=== PATIENT | male | born 1985 | race Caucasian/White ===

== ENCOUNTER → 2021-02-14 17:40 | Outpatient (BNVA) | payer OTHER, SELFPAY | PROVIDERS: Visit Provider Surgery | DX: Z20.822 Contact with and (suspected) exposure to COVID-19 (principal) | CPT/HCPCS: 87635 ==

== ENCOUNTER 2021-02-20 07:21 | Day surgery (SDC) | payer OTHER, SELFPAY ==
[2021-02-19 14:01] VITALS: BMI 23.1
--- NOTE | 2021-02-20 07:39 | ANES.PREANE2 ---
Pre-Anesthetic Assessment Pre-Anesthetic Assessment: Height/Weight: Height 1.88 m Weight 81.647 kg Preop Diagnosis: hemorrhoids Proposed Procedure: Operation Date: 02/20/21 08:20 Proposed Procedures p Hemorroidectomy 95706 K64.9(Not Applicable) - Macho Cortés MD Was Beta Jose Maria taken within 24 hours: N/A Was Clonidine taken within 24 hours: N/A Social: Social History: Alcohol and Tobacco Exam: Pre-Anes Outpt Exam: alert, oriented x 3, clear to auscultation bilaterally and regular rate & rhythm Airway: Submandibular: WNL Cervical ROM: WNL MP: 2 Pulmonary: Pulmonary: None reported CV/HEM: CV/HEM: None reported : : None reported Hepatic: Hepatic: None reported GI: GI: None reported Metabolic: Metabolic: None reported Musc/skel: Musc/skel: None reported Neuropsych: Neuropsych: Anxiety and Depression Anesthetic Plan: ASA status: 2 Anesthesia: General PFSH Anesthesia PFSH: Medical History Psychiatric care Social History Smoking and tobacco status: current every day smoker cigarettes Packs smoked per day: 1.5 Years cigarettes smoked: 22 Quit status (tobacco): has tried quititng Number of times tried to quit tobacco: 4 Second hand smoke exposure: Yes Data Anesthesia Cardiac Studies: No Data to Display
[2021-02-20 07:40] VITALS: BP 116/79; PULSE 79; RESP 18; TEMP 36.2; O2SAT 96
[2021-02-20] MEDS: sodium chloride 0.9% 1,000 ML 30 ML IV (07:42)
--- NOTE | 2021-02-20 07:42 | W.PM.OPSFHP ---
Same Day Surgery H&P Indication for Procedure/HPI DATE OF PROCEDURE: February 20, 2021 CHIEF COMPLAINT/INDICATIONFOR SURGICAL PROCEDURE: hemorroidectomy PREOP DIAGNOSIS: hemorrhoids PLANNED PROCEDRUE: Operation Date: 02/20/21 08:20 Proposed Procedures p Hemorroidectomy 91965 K64.9(Not Applicable) - Macho Cortés MD Medications/Allergies* Home Medications Medication Instructions Recorded Confirmed Type ascorbate calcium (vitamin C) 500 500 mg PO DAILY 11/15/20 02/19/21 History mg tablet aspirin-caffeine 500 mg-32.5 mg 1 tab PO DAILY tab 11/15/20 02/19/21 History tablet cholecalciferol (vitamin D3) 250 250 mcg PO DAILY 11/15/20 02/19/21 History mcg (10,000 unit) capsule pantoprazole 20 mg PO DAILY 02/19/21 02/19/21 History Allergies/Adverse Reactions Allergy/AdvReac Type Severity Reaction Status Date / Time Bee stings Allergy Intermediate Swelling Uncoded 02/19/21 13:57 Pertinent History/Comorbid Conditions* Medical History (Updated 11/16/20 @ 16:39 by Sinai Desai) Psychiatric care Social History Smoking and tobacco status: current every day smoker cigarettes Packs smoked per day: 1.5 Years cigarettes smoked: 22 Quit status (tobacco): has tried quititng Number of times tried to quit tobacco: 4 Second hand smoke exposure: Yes Pertinent Exam Findings alert, oriented x 3 and regular rate & rhythm Recommendations Surgery/Procedure today Coding Level of Care Code 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
[2021-02-20 08:54] VITALS: BP 137/79; PULSE 93; RESP 18; TEMP 36.2; O2SAT 98
--- NOTE | 2021-02-20 08:54 | PM.OP ---
Operative Report Date of procedure: February 20, 2021 Pre-op Diagnosis: Grade 3 hemorrhoids Post-op diagnosis: same Procedure Done: Hemorrhoidectomy x3 Pathology: Hemorrhoids x3 Surgeon: Macho Cortés Anesthesia: General Condition: stable Disposition: PACU Procedure: The patient was taken to the operating room and intubated under general anesthesia after IV antibiotic had been administered and placed in a prone jackknife position. The buttocks were taped apart. The perineum was prepped and draped in a sterile manner. A perianal block was performed using 10 cc of Exparel mixed with 10 cc of 0.5% Marcaine mixed with 10 cc of saline. Anoscope was introduced to examine the rectum and anal canal and 3 hemorrhoid pedicles were identified. The pedicle on the right side was grasped with Allis clamps and a skin incision was made from the perianal skin to the anal verge and the plane identified superficial to the internal sphincter muscle and the external and internal hemorrhoids were excised with an energy device. The pedicle on the left side was grasped with Allis clamps and a skin incision was made from the perianal skin to the anal verge and the plane identified superficial to the internal sphincter muscle and the external and internal hemorrhoids were excised with an energy device. The pedicle on the anterior aspect was grasped with Allis clamps and a skin incision was made from the perianal skin to the anal verge and the plane identified superficial to the internal sphincter muscle and the external and internal hemorrhoids were excised with an energy device. Hemostasis ensured and a Adaptic gauze soaked in Vaseline and placed within the anal canal. Dressings were applied and the patient was extubated and transferred to recovery room in stable condition.
[2021-02-20 09:00] VITALS: BP 113/77; PULSE 87; RESP 16; O2SAT 100
[2021-02-20 09:05] VITALS: BP 125/83; PULSE 72; RESP 18; TEMP 36.4; O2SAT 99
[2021-02-20 09:18] VITALS: BP 119/79; PULSE 65; RESP 18; TEMP 36.1; O2SAT 100
[2021-02-20 09:25] VITALS: RESP 18; O2SAT 100
[2021-02-20] MEDS: oxyCODONE-APAP 5-325 mg Tablet 1 TAB PO (09:25)
--- NOTE | 2021-02-20 14:19 | ANE.PACU2 ---
Inpatient post-anesthesia follow up: Airway intact: Yes Vital signs: Temperature 97.0 F Pulse Rate 65 Respiratory Rate 18 Blood Pressure 119/79 Pulse Oximetry 100 Oxygen Delivery Me thod Room Air Oxygen Flow Rate Fraction of Inspir ed Oxygen Hydration adequate: Yes Nausea and vomiting: No Pain level: 2 Mental status: Baseline
== END 2021-02-20 10:07 | disposition home or self-care (01) ==
PROVIDERS: PCP Family Medicine; Visit Provider Surgery
PROC: (CPT 46260; principal; 2021-02-20 08:20)
DX: K64.9 Unspecified hemorrhoids (principal); K64.8 Other hemorrhoids; F17.210 Nicotine dependence, cigarettes, uncomplicated; Z79.82 Long term (current) use of aspirin; Z91.030 Bee allergy status
CPT/HCPCS: 46260; 88304; C9290; J0330; J0690; J1100; J2250; J2370; J2405; J2704; J3010; J3490; J7030

== ENCOUNTER 2021-03-21 13:47 | Emergency (ER) | payer OTHER, SELFPAY ==
[2021-03-21 14:10] VITALS: BP 145/84; PULSE 78; RESP 16; TEMP 36.8; O2SAT 99; BMI 23.7
[2021-03-21 14:22] VITALS: BP 145/84; PULSE 78; RESP 16; O2SAT 97
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
[2021-03-21] MEDS: ibuprofen 800 mg tablet PO (14:56)
[2021-03-21 15:38] VITALS: BP 123/83; PULSE 87; RESP 18; O2SAT 97
== END 2021-03-21 15:46 ==
PROVIDERS: Emergency Provider Nurse Practitioner Family; PCP Family Medicine
DX: Z04.1 Encounter for examination and observation following transport accident (principal); Z77.22 Contact with and (suspected) exposure to environmental tobacco smoke (acute) (chronic); V89.2XXA Person injured in unspecified motor-vehicle accident, traffic, initial encounter
CPT/HCPCS: 73030; 99283

== ENCOUNTER 2022-02-04 22:26 | Emergency (ER) | payer BC, SELFPAY ==
[2022-02-04 22:32] VITALS: BP 132/91; PULSE 104; RESP 16; TEMP 36.5; O2SAT 96; BMI 23.7
--- NOTE | 2022-02-04 23:06 | ED.C_ITS ---
HPI - Psych General: Chief Complaint: Psychiatric Symptoms Stated Complaint: SH/ETOH Time Seen by Provider: 02/04/22 22:35 Source: patient and police Mode of arrival: other (police) Limitations: no limitations History of Present Illness: 36-year-old male is here with police does have a history of alcoholism states he does drink heavily tonight taking multiple shots of fireball drinking wine and beer. Does have a history of PTSD from [place] where he states he is having some flashbacks tonight he has had thoughts of depression states that he has had thoughts that life just was not worth living anymore. He denies any active suicidal or homicidal thoughts denies any active plans. He states he decided to call the police tonight because he was scared. Associated symptoms: Reports depression Review of Systems Const: Denies: fever(s), chills, body aches or change in appetite Eyes: Denies: blurry vision or eye discomfort ENMT: Denies: throat pain or dental pain Card: Denies: chest pain Resp: Denies: dyspnea GI: Denies: abdominal pain, nausea, vomiting or diarrhea : Denies: dysuria Musc: Denies: neck pain or back pain Skin/Breast: Denies: rash Neuro: Denies: headache(s) Psych: Reports: depression Kirill/Lymph: Denies: easy bruising All/Imm: Denies: urticaria PFS ED PFSH: Medical History Psychiatric care Surgical History S/P hemorrhoidectomy (02/20/21) Social History Smoking and tobacco status: current every day smoker cigarettes Packs smoked per day: 1.5 Years cigarettes smoked: 22 Quit status (tobacco): has tried quititng Number of times tried to quit tobacco: 4 Second hand smoke exposure: Yes Alcohol intake: current Alcohol intake frequency: holidays/special occasions only Alcohol type: beer Physical Exam Const: COMMON NORMALS: no acute distress and patient oriented x3 GENERAL APPEARANCE: odor of alcohol detected HENMT: COMMON NORMALS: normocephalic and atraumatic HEAD & SCALP: normocephalic and atraumatic Eye: COMMON NORMALS: Equal, round and reactive pupils present and EOMs intact bilaterally PUPIL: Yes Equal, round and reactive pupils present Neck/C-Spine: COMMON NORMALS: full ROM and supple Chest: COMMONS NORMALS: normal inspection of the chest and normal palpation of entire chest wall Resp: COMMON NORMALS: normal respiratory effort, No retractions, No use of accessory muscles and clear to auscultation bilaterally AUSCULTATION: clear to auscultation bilaterally Cardio: COMMON NORMALS: regular rate, regular rhythm and No murmurs present (Cardio) RATE: regular rate RHYTHM: regular rhythm GI: COMMON NORMALS: Normal to inspection, nondistended, normoactive bowel sounds present, Soft to palpation, non-tender and no masses PALPATION: Yes Soft to palpation Extremity: COMMON NORMALS: normal to inspection and full ROM Neuro: COMMON NORMALS: patient oriented x3, moves all extremities and no focal motor deficits Psych: COMMON NORMALS: mental status grossly normal, Normal thought process p resent and cooperative MOOD & AFFECT: Yes depressed mood THOUGHT PROCESS: Normal thought process present Skin: COMMON NORMALS: no rashes or lesions noted and no wounds GENERAL SKIN EXAM: no rashes or lesions noted Course 2 Vital Signs: Vital signs: Vital Signs Temperature 97.7 F 02/04/22 22:32 Pulse Rate 104 H 02/04/22 22:32 Respiratory Rate 15 02/04/22 23:35 Blood Pressure 132/91 02/04/22 22:32 Pulse Oximetry 96 02/04/22 22:32 Oxygen Delivery Me thod 02/04/22 23:35 MDM - Psych Medical Decision Making Patient presents here with depression he is also intoxicated patient is now sober he is not suicidal or homicidal he does have depression I had patient evaluated by Dr. Granado of psychiatry who recommends outpatient follow-up he does not meet inpatient criteria patient is stable for discharge he is followed [facility] he has any worsening symptoms he is return he understands agrees to plan. Lab Data 02/04/22 22:58 02/04/22 22:58 Laboratory Results WBC 8.2 10^3/uL (4.0-10.0) 02/04/22 22:58 RBC 4.36 10^6/uL (4.1-5.3) 02/04/22 22:58 Hgb 14.4 g/dL (11.7-16.6) 02/04/22 22:58 Hct 42.9 % (42.0-52.0) 02/04/22 22: MCV 98.4 fl (80-94) H 02/04/22 22:58 MCH 33.0 pg (28.0-34.0) 02/04/22 22: MCHC 33.6 g/dL (30.0-36.0) 02/04/22 22: RDW 11.9 % (12.1-15.1) L 02/04/22 22:58 Plt Count 322 10^3/cmm (130-400) 02/04/22 22:58 MPV 10.3 fL (7.4-10.4) 02/04/22 22: Neut % (Auto) 52.5 % 02/04/22 22: Lymph % (Auto) 37.9 % 02/04/22 22:58 Catron % (Auto) 6.0 % 02/04/22: Eos % (Auto) 2.9 % 02/04/22: Baso % (Auto) 0.5 % 02/04/22:58 Neut # (Auto) 4.29 10^3/uL (1.8-7.7) 02/04/22 22: Lymph # (Auto) 3.1 10^3/uL (0.8-4.8) 02/04/22 22:58 Catron # (Auto) 0.5 10^3/uL (0.2-0.9) 02/04/22 22: Eos # (Auto) 0.2 10^3/uL (0.0-0.8) 02/04/22 22:58 Baso # (Auto) 0.0 10^3/uL (0.0-0.1) 02/04/22: Nucleated RBC % (auto) 0 % 02/04/22: Nucleated RBCs # 0.0 /100WBC 02/04/22 22:58 Sodium 141 mmol/L (136-145) 02/04/22 22:58 Potassium 3.7 mmol/L (3.5-5.1) 02/04/22 22:58 Chloride 103 mmol/L (98-107) 02/04/22 22:58 Carbon Dioxide 25 mmol/L (22-29) 02/04/22 22:58 Anion Gap 16.7 (5-19) 02/04/22 22:58 BUN 5 mg/dL (6-20) L 02/04/22 22:58 Creatinine 0.7 mg/dL (0.7-1.2) 02/04/22 22:58 GFR Calculation 126.2 mL/min (90-130) 02/04/22 22:58 Glucose 98 mg/dL (65-115) 02/04/22 22:58 Calculated Osmolality 289 mOsm/kg (285-295) 02/04/22 22:58 Calcium 9.4 mg/dL (8.5-10.5) 02/04/22 22:58 Total Bilirubin 0.2 mg/dL (0.15-1.2) 02/04/22 22:58 AST 25 U/L (0-40) 02/04/22 22:58 ALT 19 U/L (0-41) 02/04/22 22:58 Alkaline Phosphatase 89 U/L (40-130) 02/04/22 22:58 Total Protein 7.7 g/dL (6.6-8.7) 02/04/22 22:58 Albumin 4.2 g/dL (3.5-5.2) 02/04/22 22:58 Globulin 3.5 g/dL (1.3-4.6) 02/04/22 22:58 Salicylates < 0.3 mg/dL (3-10) L 02/04/22 22:58 Urine Opiates Screen Negative ng/mL (Negative) 02/04/22 22:55 Acetaminophen < 5.0 ug/mL (10-30) L 02/04/22 22:58 Ur Barbiturates Screen Negative ng/mL (Negative) 02/04/22 22:55 Ur Phencyclidine Scrn Negative ng/mL (Negative) 02/04/22 22:55 Ur Amphetamines Screen Negative ng/mL (Negative) 02/04/22 22:55 U Benzodiazepines Scrn Negative ng/mL (Negative) 02/04/22 22:55 Urine Cocaine Screen Negative ng/mL (Negative) 02/04/22 22:55 U Marijuana (THC) Screen Negative ng/mL (Negative) 02/04/22 22:55 Ethyl Alcohol 167 mg/dL (0-10) H 02/04/22 22:58 Discharge Plan Discharge Patient Disposition: Home Clinical Impression: Depression, Alcohol abuse Condition: Stable Prescriptions: No Action ascorbate calcium (vitamin C) 500 mg tablet 500 mg PO DAILY cholecalciferol (vitamin D3) 250 mcg (10,000 unit) capsule 250 mcg PO DAILY Maya Back and Body 500-32.5 mg tablet 1 tab PO DAILY mirtazapine 15 mg tablet 15 mg PO .HS Qty: 30 2RF duloxetine 60 mg capsule,delayed release(DR/EC) 60 mg PO DAILY Qty: 30 2RF hydroxyzine HCl 50 mg tablet 50 mg PO QID PRN (Reason: anxiety) Qty: 120 2RF pantoprazole 20 mg Tablet,Delayed Release (Dr/Ec) 20 mg PO DAILY Discharge Orders: Discharge ED (Routine); Ordered 02/05/22 Ordered By: Rosy Hassan Referrals: [facility], [Staff Physician] - 1-3 days Gregorio Colón MD [Primary Care Provider] - Discharge Diet: Advance as tolerated Discharge Activity: Resume usual activity Patient Instructions: Depression (ED) Coding Level of Care Code ED Release Of Information Clerk for Chg Fwd Exam Comprehensive
[2022-02-04 23:15] LABS: Basophils % 0.5 %; Eosinophils # 0.2 10^3/uL (0.0-0.8); Eosinophils % 2.9 %; Hematocrit 42.9 % (42.0-52.0); Hemoglobin 14.4 g/dL (11.7-16.6); Lymphocytes # 3.1 10^3/uL (0.8-4.8); Lymphocytes % 37.9 %; Mean Corpuscular HGB Conc 33.6 g/dL (30.0-36.0); Mean Corpuscular Volume 98.4 fl (80-94); Mean Platelet Volume 10.3 fL (7.4-10.4); Monocytes # 0.5 10^3/uL (0.2-0.9); Neutrophils # 4.29 10^3/uL (1.8-7.7); Neutrophils % 52.5 %; Nucleated Red Blood Cells % 0 %; Platelet Count 322 10^3/cmm (130-400); Red Blood Count 4.36 10^6/uL (4.1-5.3); Red Cell Distribution Width 11.9 % (12.1-15.1); White Blood Count 8.2 10^3/uL (4.0-10.0)
[2022-02-04 23:22] LABS: Amphetamines Screen Urine Negative (Negative); Barbiturates Screen Urine Negative (Negative); Benzodiazepines Screen Urine Negative (Negative); Cocaine Screen Urine Negative (Negative); Opiate Screen Urine Negative (Negative); PCP Screen Urine Negative (Negative); THC Screen Urine Negative (Negative)
[2022-02-04 23:31] LABS: Alanine Aminotransferase 19 U/L (0-41); Albumin Level 4.2 g/dL (3.5-5.2); Alcohol Level 167 mg/dL (0-10); Alkaline Phosphatase 89 U/L (40-130); Anion Gap 16.7 (5-19); Aspartate Amino Transferase 25 U/L (0-40); Blood Urea Nitrogen 5 mg/dL (6-20); Calcium 9.4 mg/dL (8.5-10.5); Carbon Dioxide 25 mmol/L (22-29); Chloride 103 mmol/L (98-107); Globulin 3.5 g/dL (1.3-4.6); Glomerular Filtration Rate 126.2 mL/min (90-130); Glucose 98 mg/dL (65-115); Osmolality Calculated 289 mOsm/kg (285-295); Potassium 3.7 mmol/L (3.5-5.1); Sodium 141 mmol/L (136-145); Total Bilirubin 0.2 mg/dL (0.15-1.2); Total Protein 7.7 g/dL (6.6-8.7)
[2022-02-04 23:35] VITALS: RESP 15
[2022-02-04 23:38] LABS: Acetaminophen < 5.0 ug/mL (10-30); Salicylate < 0.3 mg/dL (3-10)
[2022-02-04 23:58] LABS: Slide Review Slide Review Perform
[2022-02-05] MEDS: nicotine 21 mg Patch 1 PATCH TRANSDERMA (00:24)
[2022-02-05] MEDS: nicotine 2 mg Gum 4 MG BUCCAL (01:39)
[2022-02-05 03:54] VITALS: RESP 15
--- NOTE | 2022-02-05 11:58 | DCPLANNER ---
Addendum entered by Florencia Johnson 02/06/22 09:46: accredited farm manager received the following message from [facility] regarding referral made for patient: he is not currently a patient-i have emailed Shannan Cardenas to call to let him know about how to start sevices with us. Original Note: accredited farm manager had message to schedule a follow up appointment for patient with [facility]. accredited farm manager sent patients information to the scheduling department at [facility]. Clinic will review patients information and will call patient with appointment information.
== END 2022-02-05 03:57 | disposition home or self-care (01) ==
PROVIDERS: Emergency Provider Emergency Medicine; PCP Family Medicine
DX: F32.A Depression, unspecified (principal); F10.10 Alcohol abuse, uncomplicated; Y90.6 Blood alcohol level of 120-199 mg/100 ml; F17.210 Nicotine dependence, cigarettes, uncomplicated
CPT/HCPCS: 80053; 80306; 80307; 85025; 96372; 99284; J3411

== ENCOUNTER 2022-04-20 08:36 | Emergency (ER) | payer BC, SELFPAY ==
[2022-04-20 08:38] VITALS: BP 107/57; PULSE 89; RESP 16; TEMP 36.4; O2SAT 98
--- NOTE | 2022-04-20 08:43 | XRR_ITS ---
PROCEDURE INFORMATION: Exam: XR Chest Exam date and time: 04/20/2022 8:57 AM Age: 36 years old Clinical indication: Pain; Chest pressure; Additional info: Chest pain TECHNIQUE: Imaging protocol: Radiologic exam of the chest. Views: 1 view. COMPARISON: CR XR shoulder LT min 2V* [id number] 03/21/2021 3:00 PM FINDINGS: Lungs: Normal lung volumes. No interstitial or airspace opacities. Pleural spaces: No pleural effusion. No pneumothorax. Heart/Mediastinum: Normal heart size. Normal mediastinal contour. Midline trachea. Bones/joints: No acute abnormalities. XR/XR chest 1V portable [id number] IMPRESSION: No chest radiographic evidence of acute cardiopulmonary disease.
--- NOTE | 2022-04-20 08:43 | ECG_ITS ---
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 Measurements Intervals [place] Rate: 78 P: 62 MT: 147 QRS: 69 QRSD: 90 T: 62 QT: 346 QTc: 395 Interpretive Statements SINUS RHYTHM POSSIBLE ANTERIOR MYOCARDIAL INFARCTION , OF INDETERMINATE AGE [30 ms Q WAVE IN V3/V4, OR R < 0.2 mV IN V4] No previous ECG available for comparison Electronically Signed On 04-20-2022 8:55:35 REPORTING CONSULTANT by Kym Sanford M.D. [id number]
--- NOTE | 2022-04-20 08:49 | PC.NURSE ---
Pt is in police custody, officer is in the room and pt is handcuffed to the bed by his right arm.
[2022-04-20] MEDS: lidocaine 2% viscous 15 ML, aluminum-mag hydrox-simethicon 30 ML, sucralfate oral liq 1 GM PO (09:06)
--- NOTE | 2022-04-20 09:14 | W.ED.CHESTPA ---
HPI - Chest Pain General: Chief Complaint: Chest Pain Stated Complaint: CHEST PAIN Time Seen by Provider: 04/20/22 08:41 Source: patient Mode of arrival: EMS History of Present Illness: 36-year-old male reports to the emergency room in custody of [facility] via ambulance. He is complaining of shortness of breath and chest pain pain is worse when he lays flat or when he takes a deep breath. He is admits to history of anxiety and panic attacks. He is not hyperventilating at the time he is seen. He has no known history of coronary disease stent nothing else that exacerbates or relieves his symptoms. No vomiting or diarrhea no radiation of the pain it is not reproducible with palpation MD complaint: chest pain Onset (ago): hour(s) Timing of current episode: episodic Prior episodes: No Onset: during rest Pain location: left chest Pain radiation: none Severity: mild Quality: sharp Relieving factors: nothing Exacerbating factors: nothing Associated symptoms: Deny abdominal pain, diaphoresis, dyspnea, fever(s), leg edema, nausea, palpitations, sense of impending doom, syncope or vomiting Treatment prior to arrival: none Review of Systems Const: Denies: fever(s), chills, fatigue or diaphoresis ENMT: Denies: throat pain, ear or mastoid pain, nasal discharge or nasal congestion Card: Reports: chest pain; Denies: palpitations, irregular heart rhythm, edema, swelling of feet/ankles or syncope Resp: Denies: dyspnea, productive cough, non-productive cough or wheezing GI: Denies: abdominal pain, nausea or vomiting : Denies: flank pain, dysuria, urinary frequency or urinary urgency Skin/Breast: Denies: rash or pruritus PFSH ED PFSH: Medical History Psychiatric care Surgical History S/P hemorrhoidectomy (02/20/21) Social History Smoking and tobacco status: current every day smoker cigarettes Packs smoked per day: 1.5 Years cigarettes smoked: 22 Quit status (tobacco): has tried quititng Number of times tried to quit tobacco: 4 Second hand smoke exposure: Yes Alcohol intake: current Alcohol intake frequency: holidays/special occasions only Alcohol type: beer Physical Exam Const: GENERAL APPEARANCE: cooperative and comfortable ORIENTATION/CONSCIOUSNESS: Yes awake, Yes oriented to person, Yes oriented to place and Yes oriented to time HENMT: COMMON NORMALS: normocephalic and atraumatic HEAD & SCALP: normocephalic and atraumatic Resp: COMMON NORMALS: normal respiratory effort, No retractions, No use of accessory muscles and clear to auscultation bilaterally AUSCULTATION: clear to auscultation bilaterally Cardio: COMMON NORMALS: regular rate, regular rhythm and No murmurs present (Cardio) RATE: regular rate RHYTHM: regular rhythm GI: COMMON NORMALS: Soft to palpation and No hepatosplenomegaly present AUSCULTATION: Yes normoactive bowel sounds PALPATION: Yes Soft to palpation, No Tenderness to palpation present (GI), No Guarding due to palpation present (GI) and Yes No hepatosplenomegaly present Extremity: COMMON NORMALS: normal to inspection, capillary refill normal, no clubbing, cyanosis or edema, no calf tenderness and no pedal edema Neuro: SENSORIUM/ORIENTATION: Yes oriented to person, Yes oriented to place and Yes oriented to time Skin: COMMON NORMALS: no rashes or lesions noted GENERAL SKIN EXAM: no rashes or lesions noted Course Vital Signs: Vital signs: Vital Signs Temperature 97.6 F 04/20/22 08:38 Pulse Rate 70 04/20/22 11:08 Respiratory Rate 16 04/20/22 09:44 Blood Pressure 105/74 04/20/22 11:08 Pulse Oximetry 96 04/20/22 09:44 Oxygen Delivery Me thod 04/20/22 09:44 MDM - Chest Pain Medical Decision Making Labs imaging and EKG reviewed no acute ST changes on EKG serial troponin is negative. Pain reproducible with change of position and palpation of the chest. Use diclofenac stop the naproxen and Advair but he has on his current medication list follow-up as needed discharged back into custody Medical Records I reviewed the patient's medical records. Lab Data I reviewed the patient's lab results. 04/20/22 08:26 04/20/22 08:26 Radiology Impressions Chest X-Ray 04/20/22 08:43 IMPRESSION: No chest radiographic evidence of acute cardiopulmonary disease. Laboratory Results WBC 11.4 10^3/uL (4.0-10.0) H 04/20/22 08: RBC 4.39 10^6/uL (4.1-5.3) 04/20/22 08: Hgb 14.3 g/dL (11.7-16.6) 04/20/22 08: Hct 41.6 % (42.0-52.0) L 04/20/22 08: MCV 94.8 fl (80-94) H 04/20/22 08:26 MCH 32.6 pg (28.0-34.0) 04/20/22 08: MCHC 34.4 g/dL (30.0-36.0) 04/20/22 08: RDW 12.5 % (12.1-15.1) 04/20/22 08: Plt Count 306 10^3/cmm (130-400) 04/20/22 08: MPV 10.9 fL (7.4-10.4) H 04/20/22 08:26 Neut % (Auto) 57.8 % 04/20/22 08: Lymph % (Auto) 32.7 % 04/20/22 08: [place] % (Auto) 6.8 % 04/20/22 08:26 Eos % (Auto) 1.7 % 04/20/22 08: Baso % (Auto) 0.6 % 04/20/22 08: Neut # (Auto) 6.59 10^3/uL (1.8-7.7) 04/20/22 08: Lymph # (Auto) 3.7 10^3/uL (0.8-4.8) 04/20/22 08: [place] # (Auto) 0.8 10^3/uL (0.2-0.9) 04/20/22 08: Eos # (Auto) 0.2 10^3/uL (0.0-0.8) 04/20/22 08: Baso # (Auto) 0.1 10^3/uL (0.0-0.1) 04/20/22 08:26 Nucleated RBC % (auto) 0 % 04/20/22 08: Nucleated RBCs # 0.0 /100WBC 04/20/22 08:26 Sodium 135 mmol/L (136-145) L 04/20/22 08:26 Potassium 4.0 mmol/L (3.5-5.1) 04/20/22 08:26 Chloride 97 mmol/L (98-107) L 04/20/22 08:26 Carbon Dioxide 23 mmol/L (22-29) 04/20/22 08:26 Anion Gap 19.0 (5-19) 04/20/22 08:26 BUN 7 mg/dL (6-20) 04/20/22 08:26 Creatinine 0.8 mg/dL (0.7-1.2) 04/20/22 08:26 GFR Calculation 108.2 mL/min (90-130) 04/20/22 08:26 Glucose 86 mg/dL (65-115) 04/20/22 08:26 Calculated Osmolality 277 mOsm/kg (285-295) L 04/20/22 08:26 Calcium 9.5 mg/dL (8.5-10.5) 04/20/22 08:26 Total Bilirubin 0.2 mg/dL (0.15-1.2) 04/20/22 08:26 AST 19 U/L (0-40) 04/20/22 08:26 ALT 15 U/L (0-41) 04/20/22 08:26 Alkaline Phosphatase 96 U/L (40-130) 04/20/22 08:26 Troponin T Baseline 6 ng/L (0-15) 04/20/22 08:26 Troponin T 120 Minute 6.00 ng/L (0-15) 04/20/22 10:33 Total Protein 7.0 g/dL (6.6-8.7) 04/20/22 08:26 Albumin 4.5 g/dL (3.5-5.2) 04/20/22 08:26 Globulin 2.5 g/dL (1.3-4.6) 04/20/22 08:26 Discharge Plan Discharge Patient Disposition: Home Clinical Impression: Atypical chest pain, Anterior chest wall pain Condition: Stable Prescriptions: New diclofenac sodium 75 mg tablet,delayed release (DR/EC) 75 mg PO Q12H PRN (Reason: pain) Qty: 20 0RF Discontinued Maya [employer] 500-32.5 mg tablet 1 tab PO DAILY naproxen sodium [Aleve] 220 mg capsule 220 mg PO BID PRN (Reason: pain) Qty: 60 0RF No Action ascorbate calcium (vitamin C) 500 mg tablet 500 mg PO DAILY cholecalciferol (vitamin D3) 250 mcg (10,000 unit) capsule 250 mcg PO DAILY mirtazapine 15 mg tablet 15 mg PO .HS Qty: 30 2RF hydroxyzine HCl 50 mg tablet 50 mg PO QID PRN (Reason: anxiety) Qty: 120 2RF prednisone 20 mg tablet 20 mg PO DAILY Qty: 7 0RF pantoprazole 40 mg tablet,delayed release (DR/EC) See Rx Instructions .ROUTE .COMPLEX Qty: 90 1RF Dose Instruction: TAKE 1 TABLET BY MOUTH EVERY DAY IN THE MORNING FOR STOMACH Rx Instructions: TAKE 1 TABLET BY MOUTH EVERY DAY IN THE MORNING FOR STOMACH Discharge Orders: Discharge ED (Routine); Ordered 04/20/22 Ordered By: Jean-Paul Gonzalez Referrals: Gregorio Colón MD [Primary Care Provider] - Discharge Diet: Usual diet Discharge Activity: Resume usual activity Patient Instructions: Opioid Safety, Pain Management Activity Restrictions/Additional Instructions: You are seen today for chest pain. Your cardiac enzymes and EKGs do not show any evidence of cardiac involvement your description of the pain sounds more like anterior chest wall pain. You are given a prescription for diclofenac take 1 every 12 hours as needed for discomfort. Continue your pantoprazole you should not take any bare or naproxen or ibuprofen while you take the diclofenac. Coding Level of Care Code ED Consulting Engineer for Chg Fwd Exam Detailed
[2022-04-20 09:22] LABS: Basophils # 0.1 10^3/uL (0.0-0.1); Basophils % 0.6 %; Eosinophils # 0.2 10^3/uL (0.0-0.8); Eosinophils % 1.7 %; Hematocrit 41.6 % (42.0-52.0); Hemoglobin 14.3 g/dL (11.7-16.6); Lymphocytes # 3.7 10^3/uL (0.8-4.8); Lymphocytes % 32.7 %; Mean Corpuscular HGB Conc 34.4 g/dL (30.0-36.0); Mean Corpuscular Hemoglobin 32.6 pg (28.0-34.0); Mean Corpuscular Volume 94.8 fl (80-94); Mean Platelet Volume 10.9 fL (7.4-10.4); Monocytes # 0.8 10^3/uL (0.2-0.9); Monocytes % 6.8 %; Neutrophils # 6.59 10^3/uL (1.8-7.7); Neutrophils % 57.8 %; Nucleated Red Blood Cells % 0 %; Platelet Count 306 10^3/cmm (130-400); Red Blood Count 4.39 10^6/uL (4.1-5.3); Red Cell Distribution Width 12.5 % (12.1-15.1); White Blood Count 11.4 10^3/uL (4.0-10.0)
[2022-04-20 09:36] LABS: Troponin(5th) Baseline 6 ng/L (0-15)
[2022-04-20 09:39] LABS: Alanine Aminotransferase 15 U/L (0-41); Albumin Level 4.5 g/dL (3.5-5.2); Alkaline Phosphatase 96 U/L (40-130); Aspartate Amino Transferase 19 U/L (0-40); Blood Urea Nitrogen 7 mg/dL (6-20); Calcium 9.5 mg/dL (8.5-10.5); Carbon Dioxide 23 mmol/L (22-29); Chloride 97 mmol/L (98-107); Globulin 2.5 g/dL (1.3-4.6); Glomerular Filtration Rate 108.2 mL/min (90-130); Glucose 86 mg/dL (65-115); Osmolality Calculated 277 mOsm/kg (285-295); Sodium 135 mmol/L (136-145); Total Bilirubin 0.2 mg/dL (0.15-1.2)
[2022-04-20 09:44] VITALS: BP 116/67; PULSE 78; RESP 16; O2SAT 96
--- NOTE | 2022-04-20 10:43 | ECG_ITS ---
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 [id number]
[2022-04-20 11:08] VITALS: BP 105/74; PULSE 70
[2022-04-20 11:37] VITALS: BP 111/71; PULSE 78; RESP 16; O2SAT 97
[2022-04-20 11:55] LABS: Troponin 5 2HR Delta 0 ABS# (0-10)
== END 2022-04-20 11:40 | disposition home or self-care (01) ==
PROVIDERS: Emergency Provider Family Medicine; PCP Family Medicine
DX: R07.89 Other chest pain (principal); F17.210 Nicotine dependence, cigarettes, uncomplicated
CPT/HCPCS: 36415; 71045; 80053; 84484; 85025; 93005; 99285

== ENCOUNTER → 2022-05-06 16:09 | Outpatient (BNVA) | payer BC, SELFPAY | PROVIDERS: PCP Family Medicine; Visit Provider Family Medicine | DX: L98.9 Disorder of the skin and subcutaneous tissue, unspecified (principal) | CPT/HCPCS: 88304 ==